=== PATIENT | male | born 1960 | race Caucasian/White ===

== ENCOUNTER 2022-12-31 08:11 | Outpatient (REF) | payer BC, SELFPAY ==
[2022-12-31 15:45] LABS: MANUAL DIFF FLAG NO
[2022-12-31 15:50] LABS: Basophils Percent Auto 0.6 % (0-2); Eosinophils Percent Auto 0.6 % (0-4); Hematocrit 42.6 % (42.0-52.0); Hemoglobin 14.3 g/dl (14.0-18.0); Imm Gran Abs Auto 0.01 X10*3/uL (0.00-0.03); Imm Gran Pct Auto 0.2 % (0.0-0.4); Lymphocytes Absolute Auto 1.6 X10*3/uL (1.2-4.9); Lymphocytes Percent Auto 31.4 % (20-40); Mean Corpuscular HGB Conc 33.6 g/dl (31.0-36.0); Mean Corpuscular Hemoglobin 30.6 pg (27.0-33.0); Mean Corpuscular Volume 91.2 fL (80.0-98.0); Mean Platelet Volume 12.4 fL (9.4-12.4); Monocytes Absolute Auto 0.5 X10*3/uL (0.1-1.2); Monocytes Percent Auto 9.5 % (2-11); Neutrophils Absolute Auto 2.9 x10*3/uL (2.0-8.3); Neutrophils Percent Auto 57.7 % (45-73); Platelet Count 152 X10*3/uL (160-400); Red Blood Count 4.67 X10*6/uL (4.60-5.80); Red Cell Distribution Width 13.8 % (11.0-16.0); White Blood Count 5.1 X10*3/uL (4.8-10.8)
[2022-12-31 16:11] LABS: Alanine Aminotransferase 29 U/L (0-40); Albumin Level 4.2 g/dL (3.5-5.0); Alkaline Phosphatase 44 U/L (39-117); Anion Gap 12 (12-20); Aspartate Amino Transferase 50 U/L (5-37); Bilirubin Total 0.5 mg/dL (0.0-1.0); Blood Urea Nitrogen 14 mg/dL (9-16); Calcium 9.6 mg/dL (8.4-10.2); Carbon Dioxide 27 mmol/L (22-29); Chloride 103 mmol/L (96-108); Cholesterol 191 mg/dL (<200); Estimated Glomerular Filt Rate > 60; Glucose Fasting 115 mg/dL (60-99); HDL Cholesterol 81 mg/dL (>40); LDL Cholesterol Calculated 99 mg/dL (<100); Potassium 4.2 mmol/L (3.3-5.1); Sodium 138 mmol/L (135-145); Total Protein 7.4 g/dL (6.5-8.0); Triglycerides 55 mg/dL (<150)
[2022-12-31 16:19] LABS: TSH reflex Free T4 1.34 uIU/mL (0.32-4.0)
== END 2022-12-31 08:12 | disposition home or self-care (01) ==
LOC: HO.CHCLDS 08:11
PROVIDERS: Visit Provider Internal Medicine
DX: E11.9 Type 2 diabetes mellitus without complications (principal); E78.00 Pure hypercholesterolemia, unspecified
CPT/HCPCS: 36415; 80053; 80061; 84443; 85025

== ENCOUNTER 2023-01-06 09:24 | Outpatient (REF) | payer BC, SELFPAY ==
[2023-01-07 04:15] LABS: HBS Num1 0.02 mIU/mL (0-7.99); HBc Num1 0.62 S/CO (0.00-0.79); Hepatitis B Core Antibody Nonreactive (Nonreactive); ~Hepatitis B Surface Antibody NONREACTIVE (Nonreactive)
[2023-01-07 04:18] LABS: ~HepC Num1 0.04 S/CO (0.00-0.79); ~Hepatitis C Antibody Nonreactive (Nonreactive)
[2023-01-07 04:21] LABS: Hepatitis A Antibody IgM 0.29 Index (0-0.79); ~Hepatitis A Antibody IgM Nonreactive (Nonreactive)
== END 2023-01-06 09:25 | disposition home or self-care (01) ==
LOC: HO.CHCLDS 09:24
PROVIDERS: Visit Provider Internal Medicine
DX: R74.01 Elevation of levels of liver transaminase levels (principal)
CPT/HCPCS: 36415; 86704; 86706; 86709; 86803

== ENCOUNTER 2024-09-08 10:45 | Outpatient (REF) | payer BC, SELFPAY ==
--- OUTSIDE RECORDS SUMMARY | 2024-09-08 12:14 | XMS_ITS | Encounter Summary ---
Author Organization [employer] Address [address] [facility] 7t [place] [address] Care Team Providers Care Reservoir Engineering Advisor Name Role Phone Wilmer Cruz MD Primary Care Provider [phone] Reason for Visit * Reason Onset Date Comments Nurse Triage 09/08/2024 Encounter Details Date Type Department Care Team ([facility] st Contact Info) Description 09/08/2024 Telephone [facility] MED[facility] [address] [place] [address] Wilmer Cruz MD [address] [place] [address] Nurse Triage Social History Tobacco Use Types Packs/Day Years Used Date Smoking Tobacco: Former Cigarettes 1 1 4 - 1989 Smokeless Tobacco: Never Alcohol Answer Date Recorded How often do you have a drink containing alcohol ? 1 01/06/2023 How many drinks containing a lcohol do you have on a typical day when you are drinking? 0 01/06/2023 Frequency of Binge Drinking Not on file 09/2022 Housing Stability Answer Date Recorded What is your housing situation today? I have faisalbrandee marques 03/14/[address] you li ve. Do you have problems with any of the following? None of the above 03/14/2023 Food Insecurity Answer Date Recorded Within the past 12 months, y ou worried that your food would run out before you got money to buy more: Never True 03/14/2023 Within the past 12 months,th e food you bought just didn't last and you didn't have enough money to get more: Never True 03/2023 Transportation Answer Date Recorded In the past 12 months, has l ack of transportation kept you from medical appts, meetings, work or from getting things needed for daily living? No 03/14/2023 Utilities Answer Date Recorded In the past 12 months, has t he electric, gas, oil or water company threatened to shut off services in your home? No 03/14/2023 Depression Answer Date Recorded Patient Health Questionnaire-2 Score 4 01/06/2023 Sex and Gender Information Value Date Recorded Sex Assigned at Male 03/03/2022 10:18 AM EDT Legal Sex Male 10:18 AM EDT Gender Identity Male 03/03/2022 10:18 AM EDT Sexual Orientation Straight 03/03/2022 10 :18 AM EDT documented as of this encounter Miscellaneous Notes * Telephone Encounter - Akila Garcia RN - 09/08/2024 8:41 AM EDT Called pt. He states that since last week he has been taking his Blood pressure due to headaches and blurry vision and his systolic numbers have been between 140-160 and Diastolic 80-90's and pulse 76-80. Pt. Does not take any BP medication. This am pt. Woke up with headache again BP this am 127/80. Denies any chest pain or SOB, no left shoulder arm pain. Protocol Used: Blood Pressure - High (Adult) Protocol-Based Disposition: See in Office or Video Visit Today- appt. At 1045am in [facility] with Dr. Huffman. Video visit offer not recorded Positive Triage Questions: * Patient wants to be seen * Systolic BP >= 130 OR Diastolic >= 80, and is not taking BP medications * All higher-acuity triage questions were negative Care Advice Discussed: * High Blood Pressure * Telephone Encounter - Alberta Wheeler - 09/08/2024 8:12 AM EDT Symptom: High Blood Pressure - Caller Reports Outcome: Transfer to a nurse or provider NOW! Reason: Change in vision The caller accepted this outcome. documented in this encounter Plan of Treatment Upcoming Encounters Date Type Department Care Team (Late st Contact Info) Description 10/05/2024 9:00 AM EDT Office Visit [facility] PEDS [address] [place] [address] Wilmer Cruz MD [address] [place] [address] documented as of this encounter Visit Diagnoses Not on filedocumented in this encounter Care Teams Reservoir Engineering Advisor Relationship Specialty Start Date End Date Wilmer Cruz MD [address] [place] [address] PCP - General Internal Medicine 10/14/16 documented as of this encounter
--- OUTSIDE RECORDS SUMMARY | 2024-09-08 12:14 | XMS_ITS | Clinical Summary ---
Author Organization [employer] Address [address] [facility] 7t [place] [address] Care Team Providers Care Die Mounter Name Role Phone Wilmer Cruz MD Primary Care Provider [phone] Allergies Active Allergy Reactions Criticality Noted Date Comments Furosemide 12/20/2013 Other Reaction(s): Severe Headache, Neck Cramps Medications Lancets (OneTouch Delica Plus [id number]) misc USE DIRECTED TO TEST BLOOD SUGAR THREE TIMES DAILY 100 each 3 3 Active Lancets (OneTouch Delica Plus [id number]) misc USE DIRECTED TO TEST BLOOD SUGAR THREE TIMES DAILY 3 Active Blood Pressure kitIndications:El evated BP without diagnosis of hypertension To check the BP every other day. 1 kit 3 Active ibuprofen 800 MG tabletIndications :Spasm of back muscles TAKE 1 TABLET BY MOUTH TWICE A DAY IF NEEDED FOR MODERATE PAIN 60 tablet 1 4 Active fluticasone (Flonase) 50 MCG/ACT nasal sprayIndications: Nasal congestion Administer 1-2 sprays into each nostril 2 times daily. Shake gently. Before first use, prime pump. After use, clean tip and replace cap. 16 g 4 11/16/19 25 Active simvastatin (Zocor) 40 MG tabletIndications :Hypercholesterol emia Take 1 tablet (40 mg) by mouth at bedtime. 30 tablet 4 11/16/19 25 Active venlafaxine (Effexor) 37.5 MG tablet Take 1 tablet (37.5 mg) by mouth with breakfast and with evening meal. 60 tablet 11 4 Active fluticasone (Flonase) 50 MCG/ACT nasal spray Administer 1-2 sprays into each nostril 2 times daily. Shake gently. Before first use, prime pump. After use, clean tip and replace cap. 16 g 2 4 02/10/20 25 Active cyclobenzaprine (Flexeril) 5 MG tabletIndications :Spasm of back muscles TAKE 1 TABLET BY MOUTH EVERY 8 HOURS NEEDED FOR MUSCLE SPASMS 30 tablet 2 4 Active amLODIPine (Norvasc) 5 MG tabletIndications :Benign essential hypertension Take 1 tablet (5 mg) by mouth Once per day. 30 tablet 2 5 12/08/19 25 Active Active Problems Problem Noted Date Diagnosed Date Spasm of back muscles 09/25/2022 Type 2 diabetes mellitus 02/24/2020 Anxiety 10/21/2011 Benign paroxysmal positional vertigo 10/21/2011 Gastroesophageal reflux disease 10/21/2011 Hypercholesterolemia 10/21/2011 Sleep apnea 10/21/2011 Encounters Date Type Department Care Team Description 09/08/2024 10:00 AM EDT Office Visit [facility] [address] [place] [address] Benign essential hypertension (Primary Dx); Type 2 diabetes mellitus without complication, without long-term current use of insulin ([facility]) 09/08/2024 Telephone [facility] [address] [place] [address] Wilmer Cruz MD 09/08/2024 Telephone [facility] [address] [place] [address] Wilmer Cruz MD Nurse Triage 07/15/2024 Telephone [facility]S [address] [place], [place] [phone] Wilmer Cruz MD Appointment Request from Last 3 Months Immunizations Name Administration Dates Next Due Influenza injectable quadriv alent IIV4 with preservative 05/10/2019,02/26/2016,01/23/2015 Influenza injectable quadriv alent preservative free 01/22/2021,01/27/2020 Influenza, IIV3, injectable 01/26/2014 Influenza, Split (incl. zofia fied surface antigen) 02/13/2012 Influenza, seasonal, injecta ble, preservative free 01/21/2017 Pneumococcal Conjugate PCV 20 11/16/2023 Pneumococcal Polysaccharide PPSV23 09/21/2012 Tdap 01/12/2018 Social History Tobacco Use Types Packs/Day Years Used Date Smoking Tobacco: Former Cigarettes 1 6 1 984 - 1990 Smokeless Tobacco: Never Tobacco Cessation:Counseling Given: Not Answered Alcohol Answer Date Recorded How often do you have a drink containing alcohol ? 1 01/06/2023 How many drinks containing a lcohol do you have on a typical day when you are drinking? 0 01/06/2023 Frequency of Binge Drinking Not on file 09/2022 Housing Stability Answer Date Recorded What is your housing situation today? I have faisal marques 03/14/[address] you [...] Orientation Straight 03/03/2022 10 :18 AM EDT Last Filed Vital Signs Vital Sign Reading Time Taken Comments Blood Pressure 142/92 09/08/2024 10:27 AM EDT Pulse 82 09/08/2024 9:54 AM EDT Temperature 36.6 ??C (97.8 ??F) 09/08/2024 9:54 AM ED T Respiratory Rate 18 09/08/2024 9:54 AM EDT Oxygen Saturation 96% 09/08/2024 9:54 AM EDT Inhaled Oxygen Concentration - - Weight 89.4 kg (197 lb) 09/08/2024 9:54 AM EDT Height 166.4 cm (5' 5.5 ) 02/10/2024 8:48 AM EDT Body Mass Index 32.28 02/10/2024 8:48 AM EDT Plan of Treatment Upcoming Encounters Date Type Department Care Team (Late st Contact Info) Description 10/05/2024 9:00 AM EDT Office Visit [facility] [address] [place] [address] Wilmer Cruz MD [address] [place] [address] Health Maintenance Due Date Last Done Comments CT Colonography 1960 FIT DNA/Cologuard 1960 FIT 1960 FOBT 1960 HIV Screening 1960 Sigmoidoscopy 1960 Eye Exam 1970 Alcohol/Substance Use Screening 1972 Diabetes: Urine Protein Screening 1979 Zoster Vaccines (1 of 2) 2010 Diabetes: Hemoglobin A1C 07/07/2023 023, 09/25/2022, 07/16/2020 Diabetes: Foot Exam 09/26/2023 09/25/2022, 09/25/2022, 09/25/2022, Additional history exists Lipid Panel 01/01/2024 12/31/2022 COVID-19 Vaccine ( season) 2024 09/12/2020, 08/22/2020 Influenza Vaccine (#1) 2024 , 01/27/2020, 05/10/2019, Additional history exists Depression Screening 01/07/2024 01/06/2023, 01/07/20 23 SDOH Screening 01/07/2024 01/06/2023 Tobacco Screening 02/09/2025 02/10/2024 Colonoscopy 07/12/2025 07/13/2015, 05/14/2015 Colorectal Cancer Screening 07/12/2025 DTaP/Tdap/Td Vaccines (2 - Td or Tdap) 01/13/2028 01/12/2018 RSV Patients and Patients Aged 60 years or older (1 - 1-dose 75+ series) 2035 Hepatitis C Screening Completed 01/06/2023 Pneumococcal Vaccine: 50+ Years Completed 11/16/2023, 09/21/2012 HIB Vaccines Aged Out No longer eligi ble based on patient's age to complete this topic HPV Vaccines Aged Out No longer eligi ble based on patient's age to complete this topic Hepatitis A Vaccines Aged Out No long er eligible based on patient's age to complete this topic Hepatitis B Vaccines Aged Out No long er eligible based on patient's age to complete this topic IPV Vaccines Aged Out No longer eligi ble based on patient's age to complete this topic Meningococcal Vaccine Aged Out No giovanna brandee eligible based on patient's age to complete this topic RSV under 20 months Aged Out No longe r eligible based on patient's age to complete this topic Rotavirus Vaccines Aged Out No longer eligible based on patient's age to complete this topic Procedures Procedure Name Priority Date/Time Associated Diagnosis Comments HEPATITIS C AB W/REFL TO HCV RNA, QN, PCR Routine 01/06/2023 9:28 AM EDT Transaminitis POCT GLYCATED HEMOGLOBIN, TOTAL Routine 01/06/2023 8:59 AM EDT Type 2 diabetes mellitus without complication, without long-term current use of insulin ([facility]) LIPID PANEL, STANDARD Routine 12/31/2022 8:17 AM EDT Hypercholesterolemi a COLONOSCOPY Routine 07/13/2015 11:41 AM EST from Last 3 Months or Most Recently Relevant to Health Maintenance Results * Hepatitis C Antibody with Reflex to HCV, RNA, Quantitative, Real-Time PCR (01/06/2023 9:28 AM EDT) Hepatitis C Antibody Nonreactive Nonreactive [facility] Comment:Antibodies to HCV no t detected; does not exclude early acuteHCV infection. Blood Venous blood specimen / Unknown 01/06/2023 9:28 AM EDT 01/06/2023 2:17 PM EDT us Wilmer Cruz MD LAB BLOOD ORDERABLES Final Result [facility] [address] [place] [address] [phone] * POCT A1C (01/06/2023 8:59 AM EDT) Hemoglobin A1C 5.6 4.0 - 6.0 % QC Media Lot # [id number] Lot# Expiration Date Blood 01/06/2023 8:59 AM EDT us Wilmer Cruz MD POINT OF CARE TEST ENTER/ED IT ORDERABLES Final Result * Lipid Panel, Standard (12/31/2022 8:17 AM EDT) Triglycerides 55 <150 mg/dL [facility] Comment:Desirable Triglyceri de: less than 150 mg/dLBorderline High Triglyceride 150-199 mg/dLHigh Triglyceride: 200-499 mg/dLVery High Triglyceride: greater than or equal to 5OO mg/dL Cholesterol 191 <200 mg/dL [facility] Comment:Desirable Cholestero l: less than 200 mg/dLBorderline High Cholesterol: 200-239 mg/dLHigh Cholesterol: greater than 239 mg/dL LDL Cholesterol Calculated 99 <100 mg/dL [facility] Comment:Desirable LDL: less than 100 mg/dLNear Optimal/Above Optimal LDL: 110- 129 mg/dLBorderline High LDL: 130-159 mg/dLHigh LDL: 160-189 mg/dLVery High LDL: greater than or equal to 190 mg/dL HDL Cholesterol 81 >40 mg/dL [facility] Comment:Desirable HDL: great er than 40 mg/dL Note: This HDL assay may give artificially low results in patients with liver disease. Blood Venous blood specimen / Unknown 12/31/2022 8:17 AM EDT 12/31/2022 3:39 PM EDT us Wilmer Cruz MD LAB BLOOD ORDERABLES Final Result [facility] [address] [place] [address] [phone] * (ABNORMAL) Colonoscopy (05/14/2015) Anatomical Region Laterality Modality Endoscopy Narrative 05/14/2015 Polyp 4-5 mm in the sigmoid colon. Grade 1 hemorrhoids. us Wilmer Cruz MD ENDOSCOPY PROCEDURE ORDERAB LES Final Result from Last 3 Months or Most Recently Relevant to Health Maintenance Insurance HMO Care Teams Die Mounter Relationship Specialty Start Date End Date Wilmer Cruz MD [address] [place] [phone] PCP - General Internal Medicine 10/14/16
--- OUTSIDE RECORDS SUMMARY | 2024-09-08 12:14 | XMS_ITS | Encounter Summary ---
Author Organization [employer] Address [address] [facility] 7t [place] [address] Care Team Providers Care Administration Specialist Name Role Phone Wilmer Cruz MD Primary Care Provider [phone] Encounter Details Date Type Department Care Team (Late st Contact Info) Description 09/08/2024 Telephone [facility] MEDICINE [address] [place] [address] Wilmer Cruz MD [address] [place] [address] Social History Tobacco Use Types Packs/Day Years Used Date Smoking Tobacco: Former Cigarettes 1 10 02 974 - 1989 Smokeless Tobacco: Never Alcohol Answer [...] Encounter - Akila Garcia RN - 09/08/2024 9:10 AM EDT Called pt. Back. Advised to go to [facility] walk in as [facility] provider that pt. Was scheduled with today called in sick. Pt. Will go to [facility] walk in. documented in this encounter Plan of Treatment Upcoming Encounters Date Type Department Care Team (Late st Contact Info) Description 10/05/2024 9:00 AM EDT Office Visit [facility] & PEDS [address] [place] [address] Wilmer Cruz MD [address] [place] [address] documented as of this encounter Visit Diagnoses Not on filedocumented in this encounter Care Teams Administration Specialist Relationship Specialty Start Date End Date Wilmre Cruz MD [address] [place] [address] PCP - General Internal Medicine 10/14/16 documented as of this encounter
--- OUTSIDE RECORDS SUMMARY | 2024-09-08 12:14 | XMS_ITS | Encounter Summary ---
Author Organization [employer] Address [address] [facility] [address] 7[address] [place] [address] Care Team Providers Care Crate Liner Name Role Phone Wilmer Crzu MD Primary Care Provider [phone] Reason for Visit * Reason Comments Hypertension Encounter Details Date Type Department Care Team ([facility] st Contact Info) Description 09/08/2024 10:00 AM EDT Office Visit [facility] [place] [address] [place] [address] Benign essential hypertension (Primary Dx); Type 2 diabetes mellitus without complication, without long-term current use of insulin ([facility]) Social History Tobacco Use Types Packs/Day Years Used Date Smoking Tobacco: Former Cigarettes 1 - 1989 Smokeless Tobacco: Never Alcohol Answer [...] AM EDT documented as of this encounter Last Filed Vital Signs Vital Sign Reading Time Taken Comments Blood Pressure 142/92 09/08/2024 10:27 AM EDT Pulse 82 09/08/2024 9:54 AM EDT Temperature 36.6 ??C (97.8 ??F) 09/08/2024 9:54 AM ED T Respiratory Rate 18 09/08/2024 9:54 AM EDT Oxygen Saturation 96% 09/08/2024 9:54 AM EDT Inhaled Oxygen Concentration - - Weight 89.4 kg (197 lb) 09/08/2024 9:54 AM EDT Height - - Body Mass Index 32.28 02/10/2024 8:48 AM EDT documented in this encounter Plan of Treatment Upcoming Encounters Date Type Department Care Team (Late st Contact Info) Description 10/05/2024 9:00 AM EDT Office Visit [facility] [address] [place] [address] Wilmer Cruz MD [address] [place] [address] Scheduled Orders Name Type Priority Associated Diagnoses Orde r Schedule TSH W/Reflex to FT4 Lab Routine Benign essential hypertension Expected: 09/08/2024 (Approximate), Expires: 09/08/2025 Lipid Panel, Standard Lab Routine Benign essential hypertension Expected: 09/08/2024 (Approximate), Expires: 09/08/2025 Comprehensive Metabolic Panel Lab Routine Type 2 diabetes mellitus without complication, without long-term current use of insulin ([facility]) Expected: 09/08/2024 (Approximate), Expires: 09/08/2025 Hemoglobin A1c Lab Routine Type 2 diabetes mellitus without complication, without long-term current use of insulin ([facility]) Expected: 09/08/2024 (Approximate), Expires: 09/08/2025 Albumin, Random Urine W/Creatinine Lab Routine Type 2 diabetes mellitus without complication, without long-term current use of insulin (CMS/HCC) Expected: 09/08/2024 (Approximate), Expires: 09/08/2025 documented as of this encounter Visit Diagnoses Diagnosis Benign essential hypertension- Primary Essential hypertension, benign Type 2 diabetes mellitus without complication, without long-term current use of insulin ([facility]) documented in this encounter Care Teams Crate Liner Relationship Specialty Start Date End Date Wilmer Cruz MD [address] [place] [id number] PCP - General Internal Medicine 10/14/16 documented as of this encounter
--- OUTSIDE RECORDS SUMMARY | 2024-09-08 12:14 | XMS_ITS | Encounter Summary ---
Author Organization [employer] Address [address] [place] [address] [address] [place] [address] Care Team Providers Care Senior Occupational Therapist Name Role Phone Wilmer Cruz MD Primary Care Provider [phone] Encounter Details Date Type Department Care Team (Late st Contact Info) Description 11/25/2022 Orders Only [facility] [address] [place] [address] Gloria Johnson LPN Social History Tobacco Use Types Packs/Day Years Used Date Smoking Tobacco: Former Cigarettes 1 6 4 1989 Smokeless Tobacco: Never Sex and Gender Information Value Date Recorded Sex Assigned at Male 03/03/2022 10:18 AM EDT Legal Sex Male 10:18 AM EDT Gender Identity Male 03/03/2022 10:18 AM EDT Sexual Orientation Straight 03/03/2022 10 :18 AM EDT documented as of this encounter Plan of Treatment Upcoming Encounters Date Type Department Care Team (Late st Contact Info) Description 10/05/2024 9:00 AM EDT Office Visit [facility] [address] [place] [address] Wilmer Cruz MD [address] [place] [address] documented as of this encounter Procedures Procedure Name Priority Date/Time Associated Diagnosis Comments HEPATITIS A ANTIBODY, IGM Routine 01/06/2023 9:28 AM EDT COMPREHENSIVE METABOLIC PANEL, FASTING Routine 12/31/2022 8:17 AM EDT documented in this encounter Results * Hepatitis A IgM Antibody (01/06/2023 9:28 AM EDT) Hepatitis A IgM Nonreactive Nonreactive [facility] Comment:IgM antibodies to PARKS V not detected; does not exclude earlyacute or recovered HAV infection. 01/06/2023 9:28 AM EDT 01/06/2023 2:17 PM EDT us Wilmer Cruz MD LAB BLOOD ORDERABLES Final Result [facility] [address] [place], [place] [phone] * (ABNORMAL) Comprehensive Metabolic Panel, Fasting (12/31/2022 8:17 AM EDT) Sodium 138 135 - 145 mmol/L [facility] Potassium 4.2 3.3 - 5.1 mmol/L [facility] Chloride 103 96 - 108 mmol/L [facility] Carbon Dioxide 27 22 - 29 mmol/L [facility] Anion Gap 12 12 - 20 [facility] Urea Nitrogen (BUN) 14 9 - 16 mg/dL [facility] Creatinine, Serum 0.72 0.5 - 1.4 mg/dL [facility] Estimated Glomerular Filt Rate >60 [facility] Comment:NOTE: For -Am erican individuals, multiply the result by 1.210.Chronic Kidney Disease: Estimated GFR < 60 mL/min/1.46n6Sgglfh Kidney Disease: Estimated GFR < 15 mL/min/1.73m2 Glucose Fasting 115(H) 60 - 99 mg/dL [facility] Comment:A fasting glucose fr om 100-125 mg/dl is considered impaired(pre-diabetes). Calcium 9.6 8.4 - 10.2 mg/dL [facility] Bilirubin, Total 0.5 0.0 - 1.0 mg/dL [facility] Aspartate Amino Transferase 50(H) 5 - 37 U/L [facility] Alanine Aminotransferase 29 0 - 40 U/L [facility] Total Protein 7.4 6.5 - 8.0 g/dL [facility] Albumin Level 4.2 3.5 - 5.0 g/dL [facility] Alkaline Phosphatase 44 39 - 117 U/L [facility] 12/31/2022 8:17 AM EDT 12/31/2022 3:39 PM EDT Wilmer Cruz MD LAB BLOOD ORDERABLES Final Result [facility] [address] [place] [address] [phone] documented in this encounter Visit Diagnoses Not on filedocumented in this encounter Care Teams Senior Occupational Therapist Relationship Specialty Start Date End Date Wilmer Cruz MD [address] [place] [phone] PCP - General Internal Medicine 10/14/16 documented as of this encounter
--- OUTSIDE RECORDS SUMMARY | 2024-09-08 12:14 | XMS_ITS | Encounter Summary ---
Author Organization [employer] Address [address] [place] [address] Care Team Providers Care Linux Systems Administrator Name Role Phone Wilmer Cruz MD Primary Care Provider [phone] Reason for Visit * Reason Comments Med Refill Encounter Details Date Type Department Care Team (Late st Contact Info) Description 08/10/2022 Refill [facility] [address] [place] [address] Wilmer Cruz MD [address] [place] [address] Social History Tobacco Use Types Packs/Day Years Used Date Smoking Tobacco: Never Assessed Sex and Gender Information Value Date Recorded Sex Assigned at Male 03/03/2022 10:18 AM EDT Legal Sex Male 10:18 AM EDT Gender Identity Male 03/03/2022 10:18 AM EDT Sexual Orientation Straight 03/03/2022 10 :18 AM EDT documented as of this encounter Plan of Treatment Upcoming Encounters Date Type Department Care Team (Late st Contact Info) Description 10/05/2024 9:00 AM EDT Office Visit [facility] [address] [place] [address] Wilmer Cruz MD [address] [place] [address] documented as of this encounter Visit Diagnoses Not on filedocumented in this encounter Care Teams Linux Systems Administrator Relationship Specialty Start Date End Date Wilmer Cruz MD [address] [place] [address] PCP - General Internal Medicine 10/14/16 documented as of this encounter
[2024-09-08 13:30] LABS: Estimated Average Glucose 123 mg/dL; Hemoglobin A1C 154.4637 umol/L; Hemoglobin A1c % 5.9 % (<6.0); Total Hemoglobin (HGBA1C) 3805.1374 umol/L
[2024-09-08 13:40] LABS: Alanine Aminotransferase 21 U/L (0-40); Albumin Level 4.2 g/dL (3.5-5.0); Alkaline Phosphatase 55 U/L (39-117); Anion Gap 12 (12-20); Aspartate Amino Transferase 23 U/L (5-37); Bilirubin Total 0.4 mg/dL (0.0-1.0); Blood Urea Nitrogen 12 mg/dL (9-16); Calcium 9.5 mg/dL (8.4-10.2); Carbon Dioxide 27 mmol/L (22-29); Chloride 104 mmol/L (96-108); Cholesterol 148 mg/dL (<200); Estimated Glomerular Filt Rate > 60; Glucose Random 113 mg/dL (60-115); HDL Cholesterol 62 mg/dL (>40); LDL Cholesterol Calculated 78 mg/dL (<100); Potassium 4.6 mmol/L (3.3-5.1); Sodium 138 mmol/L (135-145); Total Protein 7.5 g/dL (6.5-8.0); Triglycerides 43 mg/dL (<150)
[2024-09-08 13:58] LABS: Creatinine Urine 26.54 mg/dL; Microalbumin Urine < 5.0 mg/L
[2024-09-08 13:59] LABS: TSH reflex Free T4 1.06 uIU/mL (0.32-4.0)
== END 2024-09-08 10:46 | disposition home or self-care (01) ==
LOC: HO.HHCL 10:45
PROVIDERS: Family Medicine; Visit Provider Internal Medicine
DX: E78.00 Pure hypercholesterolemia, unspecified (principal); E11.9 Type 2 diabetes mellitus without complications
CPT/HCPCS: 36415; 80053; 80061; 82570; 83036; 84443